=== PATIENT | female | born 1980 | race Caucasian/White ===

== ENCOUNTER 2016-10-07 12:20 | Emergency (ER) | payer SELFPAY ==
[~2016-10-07] VITALS: Ht 157.5 cm; Wt 88.8 kg
[2016-10-07] MEDS ORDERED: HYDROmorphone 2 MG/ML (DILAUDID) 1 ML SYRINGE IM ONE (13:25)
[2016-10-07] MEDS ORDERED: KETOROLAC 60 MG/2 ML (TORADOL) VIAL IM ONE (13:25)
[2016-10-07] MEDS ORDERED: PROMETHAZINE 25 MG/ML (PHENERGAN) 1 ML VIAL IM ONE (13:25)
[2016-10-07 13:42] LABS: BILIRUBIN,URINE Negative (Negative); CLARITY,URINE Cloudy; COLOR,URINE Yellow; GLUCOSE, URINE (UA) Negative (Negative); LEUKOCYTE ESTERASE ,URINE 2+ (Negative); PH,URINE 5.5 (5.0 - 8.0); UROBILINOGEN,URINE 0.2 mg/dL (0.2-1.0)
[2016-10-07 13:56] LABS: URINE CENTRIFUGED VOLUME 12 mL
[2016-10-07 13:57] LABS: RBC,URINE 20-50 /HPF
[2016-10-07 14:41] VITALS: BP 102/76
== END 2016-10-07 14:25 | disposition home or self-care (01) ==
LOC: ED 12:23
DX: N23 Unspecified renal colic (principal); N39.0 Urinary tract infection, site not specified
CPT/HCPCS: 81003; 81015; 87088; 96372; 99282; J1170; J1885; J2550; 87077; 87186; 99283

== ENCOUNTER → 2016-10-30 | Outpatient (CLI) | payer SELFPAY ==
[~2016-10-30] MED LIST: BACI3.5O6 OU; BUSP10TA95 PO; CLON1TAB3 PO; CPR500T PO; CYCL2DRO3 OU; FLUO20CA42 PO; HYDR-3702 PO; HYDR-3811 PO; LEVO1TAB20 PO; LVF500T PO; NF-TORA10 PO; ONDA4TAB8 PO; PARO40TA3 PO; PARO40TA47 PO; PRM25T PO; PROP20TA5 PO; QUET300T3 PO; TAMS0.4C2 PO; TRAM-25 PO; TRAZ100T92 PO; ZLP10T PO
[2016-10-30 12:46] LABS: MEAN CORPUSCULAR HEMOGLOBIN 28.1 PG (26.0-34.0); MEAN CORPUSCULAR HGB CONC 32.6 g/dL (31.0-37.0); MEAN CORPUSCULAR VOLUME 86 FL (80-100); MEAN PLATELET VOLUME 9.3 FL (6.0-9.5); PLATELET COUNT 378 10^3uL (150-450); WHITE BLOOD COUNT 7.83 10^3uL (4.0-11.0)
[2016-10-30 13:30] LABS: ANION GAP 14.3 MEQ/L (3-15)
[2016-10-30 13:57] LABS: BAND NEUTROPHILS % 0 % (0-6); EOSINOPHILS % 20 % (0-4); LYMPHOCYTES # 2.1 #; MONOCYTES # 0.2 #; MONOCYTES % 3 % (3-11); RBC MORPH NORMAL (NORMAL); SEGMENTED NEUTROPHILS % 50 % (51-67); TOTAL CELLS COUNTED 100
--- NOTE | 2016-10-30 14:04 | Diagnostic Imaging Report ---
EXAM: US RENAL BILATERAL INDICATION: History of renal stones. Flank pain. COMPARISON: CT abdomen and pelvis without contrast 03/20/2016. FINDINGS: Normal corticomedullary differentiation of the right kidney. No right renal mass or hydronephrosis. Right kidney measures 10.8 cm. The left kidney demonstrates cortical thinning and is smaller compared to the right measuring 6.5 cm. There is no left kidney mass or hydronephrosis. IMPRESSION: Stable asymmetric size of the kidneys with cortical thinning involving the lower pole of the left kidney. No hydronephrosis. Findings discussed with Dr. Stephan Oakley at 1:54 p.m. on 10/30/2016. Dictated by: Dictated on workstation # [id number]
== END ==
LOC: RAD 12:28
PROVIDERS: ATTEND Internal Medicine
DX: N30.20 Other chronic cystitis without hematuria (principal)
CPT/HCPCS: 36415; 76770; 80048; 85025; 86140

== ENCOUNTER → 2016-10-30 | Outpatient (REF) | payer SELFPAY | LOC: LAB 12:30 | PROVIDERS: ATTEND Internal Medicine | DX: N30.20 Other chronic cystitis without hematuria (principal) | CPT/HCPCS: 87088 ==

== ENCOUNTER 2016-11-25 08:55 | Emergency (ER) | payer SELFPAY ==
[~2016-11-25] VITALS: Ht 157.5 cm; Wt 91.9 kg
--- OUTSIDE RECORDS SUMMARY | 2016-11-25 08:59 | XMS REPORT | Continuity of Care Document ---
Author Author [facility] Organization [facility] Address Unknown Phone Unavailable Care Team Providers Care Solutions Operator Name Role Phone SHANKAR ROGERS MD PCP [phone] Insurance Providers Payer Name Policy Number Subscriber Name Relationship Self Pay Tiana Ballard 18 Self / Same As Patient Chief Complaint and Reason for Visit Chief Complaint Eye Complaint Reason for Visit [id number] Problems Medical Problems Problem Onset Date Status Flank pain 10/30/2012 Resolved Endoscopy of urinary bladder 12/21/2012 Resolved Pyelonephritis Unknown Resolved Laceration of leg, right ~12/25/2014 Active Contusion, forearm ~12/26/2014 Active Contusion, hand ~12/26/2014 Active Contusion of shoulder ~12/26/2014 Active Chemical insult, eye Unknown Active Medications Medication Dose Route Sig Days/Qty Instructions Order Date Discontinued Date Status Paroxetine Hcl 40 Mg ORAL daily 10/30/12 09/11/14 Discontinued Trazodone Hcl 150 Mg ORAL BEDTIME 10/30/12 09/11/14 Discontinued Tramadol Hcl 50-100 Mg ORAL EVERY 4HRS PRN PRN 10/30/12 Active Levofloxacin 500 Mg ORAL DAILY 11/04/12 09/11/14 Discontinued Ondansetron 4 Mg ORAL EVERY 6 HOURS PRN NAUSEA/VOMITING 11/04/12 Discontinued Zolpidem Tartrate 5 Mg ORAL BEDTIME PRN SLEEP 09/11/14 Active Buspirone HCl (Buspar) 10 Mg ORAL THREE TIMES A DAY 01/27/15 Active Clonazepam 1.5 Mg ORAL BEDTIME 09/11/14 Active Levonorgestrel-Eth Estradiol 1 Tab ORAL DAILY 09/11/14 Active Paroxetine Hcl 40 Mg ORAL DAILY 09/11/14 Active Hydrocodone Bit/Acetaminophen 1 Tab ORAL EVERY 6 HOURS PRN PRN 09/14/14 Discontinued Hydrocodone Bit/Acetaminophen 1-2 Tab ORAL EVERY 6 HOURS PRN PRN 30 Qty 09/14/14 12/25/14 Discontinued Ciprofloxacin 500 Mg ORAL TWICE A DAY 20 Qty 09/14/14 12/25/14 Discontinued Ondansetron 4 Mg ORAL EVERY 6 HOURS PRN NAUSEA 15 Qty 09/14/14 Discontinued Social History No social history. Hospital Discharge Instructions No hospital discharge instructions. Plan of Care Discharge Date 02/15/15 5:51pm Disposition 01 HOME OR SELF-CARE Condition at Discharge Stable Prescriptions See Medications Section Follow-up Orders Urine Culture Referrals SHANKAR ROGERS MD, ESTHER V MD Additional Instructions/Education Follow up with Dr Feldman. ED ERMIAS if any worse. Antibiotic ointment and cyclopentolate as directed. Some of your test results may not be complete prior to your leaving the Emergency Department. The Emergency Department is not authorized to give test results over the phone. Please contact the doctor's office listed in this packet of information for your final results. Follow up with your primary care physician or return to the Emergency Department for worsening or worrisome symptoms. * Emergency Department phone number: [phone], x [phone]* MEDICAL RECORD If you need copies of your X-rays, call [phone]. If you need copies of your medical record, including lab results, a signed authorization for release of records will be required. A telephone call for release of Health Information is not allowed. BILLING Billing can sometimes be confusing and frustrating. To help avoid confusion in the future, please take a moment to acquaint yourself with the billing parties for services. [employer] Emergency Room Services [facility] [place] [facility] Patients will receive bills for services from the appropriate provider. If you have any questions about your [facility] bill, our staff will be happy to assist you. Please call [phone], and ask for the billing department. THANK YOU for choosing [facility] as your emergency care provider! Functional Status No functional status results. Allergies, Adverse Reactions, Alerts Allergen Type Severity Reaction Status Last Updated oxycodone HCl Allergy hives Active 10/30/12 Immunizations No immunization records. Vital Signs Acute Vital Signs Vital Response Date/Time Height 5 ft 2 in Weight 172 lb Body Mass Index 31.0 kg/m^2 Results Test Source Date Result Interp. Ref. Range Comments Alanine Aminotransferase (ALT/SGPT) September 11, 2014 1:13pm 26 U/L L 30- 65 Collected by nurse? N Albumin September 12, 2014 7:00am 3.8 g/dL N 3.4-5.0 Collected by nurse? N Albumin/Globulin Ratio September 11, 2014 1:13pm 1.517 N 1.1-1.8 Collected by nurse? N Alkaline Phosphatase September 11, 2014 1:13pm 122 U/L N 38-126 Collected by nurse? N Anion Gap September 12, 2014 7:00am 14.7 MEQ/L N 3-15 Collected by nurse ? N Aspartate Amino Transf (AST/SGOT) September 11, 2014 1:13pm 18 U/L N 15- 37 Collected by nurse? N BUN/Creatinine Ratio September 11, 2014 1:13pm 12 N 10-20 Collected by nurse? N Band Neutrophils % September 12, 2014 7:00am 0 % N 0-6 Collected by nurse ? N Basophils # (Auto) September 12, 2014 7:00am Not Performed Basophils % November 04, 2012 1:20pm 0 % N 0-1 Collected by nurse? N Basophils % (Manual) September 12, 2014 7:00am 0 % N 0-2 Collected by nurse? N Basophils (%) (Auto) September 12, 2014 7:00am Not Performed 0-2 Blood Urea Nitrogen September 12, 2014 7:00am 9 mg/dL N 7-18 Collected by nurse? N C-Reactive Protein June 12, 2014 12:47pm < 0.50 MG/DL 0.0-0.9 SENT 24 HR CONTAINER & INSTRUCTIONS HOME WITH PT. Calcium Level September 12, 2014 7:00am 8.8 mg/dL N 8.8-10.8 Collected by nurse? N Calculated Osmolality September 11, 2014 1:13pm 269 mosm/L L 280-300 Collected by nurse? N Carbon Dioxide Level September 12, 2014 7:00am 27 mmol/L N 22-29 Collected by nurse? N Chloride Level September 12, 2014 7:00am 104 mmol/L N 98-108 Collected by nurse? N Clumped Platelets November 04, 2012 1:20pm 2+ Moderate amount of platelet is noted. Creatinine September 12, 2014 7:00am 1.02 mg/dL N 0.6-1.2 Collected by nurse? N D-Dimer November 04, 2012 4:40pm 5.91 ug/mL PH 0.20-0.[address] Gardner read back the results. Called by Magnolia Kulkarni at [id number] Differential Total Cells Counted September 12, 2014 7:00am 100 Collected by nurse? N Eosinophils # September 12, 2014 7:00am 0.4 # Collected by nurse? N Eosinophils # (Auto) September 12, 2014 7:00am Not Performed Eosinophils % November 04, 2012 1:20pm 2 % N 0-5 Collected by nurse? N Eosinophils % (Manual) September 12, 2014 7:00am 3 % N 0-4 Collected by nurse? N Eosinophils (%) (Auto) September 12, 2014 7:00am Not Performed 0-4 Erythrocyte Sedimentation Rate June 12, 2014 12:47pm 23 mm/hr H 0-21 Glucose Level September 12, 2014 7:00am 114 mg/dL H 70-110 Collected by nurse? N Hematocrit September 12, 2014 7:00am 37.60 % N 35.00-45.00 Collected by nurse? N Hemoglobin September 12, 2014 7:00am 12.2 g/dL N 12.0-15.5 Collected by nurse? N Lymphocytes # September 12, 2014 7:00am 1.6 # Collected by nurse? N Lymphocytes # (Auto) September 12, 2014 7:00am Not Performed Lymphocytes % November 04, 2012 1:20pm 17 % N 16-34 Collected by nurse? N Lymphocytes % (Manual) September 12, 2014 7:00am 13 % L 20-46 Collected by nurse? N Lymphocytes (%) (Auto) September 12, 2014 7:00am Not Performed 20-46 Magnesium Level September 12, 2014 7:00am 2.0 mg/dL N 1.6-2.3 Collected by nurse? N Mean Corpuscular Hemoglobin September 12, 2014 7:00am 29.6 PG N 26.0-34.0 Collected by nurse? N Mean Corpuscular Hemoglobin Concent September 12, 2014 7:00am 32.4 g/dL N 31.0-37.0 Collected by nurse? N Mean Corpuscular Volume September 12, 2014 7:00am 91 FL N 80-100 Collected by nurse? N Mean Platelet Volume September 12, 2014 7:00am 9.8 FL H 6.0-9.5 Collected by nurse? N Metamyelocytes % September 12, 2014 7:00am 0 % N 0-1 Collected by nurse? N Monocytes # September 12, 2014 7:00am 0.5 # Collected by nurse? N Monocytes # (Auto) September 12, 2014 7:00am Not Performed Monocytes % November 04, 2012 1:20pm 13 % H 0-10 Collected by nurse? N Monocytes % (Manual) September 12, 2014 7:00am 4 % N 3-11 Collected by nurse? N Monocytes (%) (Auto) September 12, 2014 7:00am Not Performed 3-11 Neutrophils # September 12, 2014 7:00am 9.8 # Collected by nurse? N Neutrophils # (Auto) September 12, 2014 7:00am Not Performed Neutrophils (%) (Auto) September 12, 2014 7:00am Not Performed 51-67 Phosphorus Level September 12, 2014 7:00am 2.7 MG/DL N 2.4-4.9 Collected by nurse? N Platelet Count September 12, 2014 7:00am 257 10^3uL N 150-450 Collected by nurse? N Potassium Level September 12, 2014 7:00am 4.1 mmol/L N 3.5-5.1 Collected by nurse? N Red Blood Count September 12, 2014 7:00am 4.12 10^6uL N 4.00-5.00 Collected by nurse? N Red Cell Distribution Width September 12, 2014 7:00am 14.8 % N 11.8-15.6 Collected by nurse? N Segmented Neutrophils % September 12, 2014 7:00am 80 % H 51-67 Collected by nurse? N Sodium Level September 12, 2014 7:00am 142 mmol/L N 135-150 Collected by nurse? N Thyroid Stimulating Hormone (TSH) June 12, 2014 12:47pm 0.85 UIU/ML N 0.46-4.68 SENT 24 HR CONTAINER & INSTRUCTIONS HOME WITH PT. Total Bilirubin September 11, 2014 1:13pm 0.6 mg/dL N 0.1-1.0 Collected by nurse? N Total Protein September 11, 2014 1:13pm 7.3 g/dL N 6.4-8.5 Collected by nurse? N Urine Amphetamines Screen October 30, 2012 1:05am Negative Negative Urine Bacteria November 04, 2012 12:55pm 2+ /HPF Collected by nurse? N Urine Barbiturates Screen October 30, 2012 1:05am Negative Negative Urine Benzodiazepines Screen October 30, 2012 1:05am Positive H Negative Urine Bilirubin November 04, 2012 12:55pm 1+ H Negative Indican, Lodine metabolite and atypical colors mayinterfere with the interpretation of the Bilirubin reaction. Further testing is required for confirmation. Urine Blood November 04, 2012 12:55pm Trace-intact H Negative Collected by nurse? N Urine Clarity November 04, 2012 12:55pm Slightly cloudy Collected by nurse? N Urine Cocaine Screen October 30, 2012 1:05am Negative Negative Urine Color November 04, 2012 12:55pm Kim Collected by nurse? N Urine Glucose (UA) November 04, 2012 12:55pm Negative Negative Collected by nurse? N Urine Ketones November 04, 2012 12:55pm Negative Negative Collected by nurse? N Urine Leukocyte Esterase November 04, 2012 12:55pm Negative Negative Collected by nurse? N Urine Metanephrine June 13, 2014 2:00pm 153 mcg/24 h () ---------REFERENCE VALUE 30-180 (Normotensive) <400 (Hypertensive) Urine Methamphetamines Screen October 30, 2012 1:05am Negative NEGATIVE Urine Mucus November 04, 2012 12:55pm 1+ Collected by nurse? N Urine Nitrite November 04, 2012 12:55pm Negative Negative Collected by nurse? N Urine Normetanephrine June 13, 2014 2:00pm 287 mcg/24 h () ------- REFERENCE VALUE 111-419 (Normotensive) <900 (Hypertensive) Urine Opiates Screen October 30, 2012 1:05am Positive H Negative Urine Phencyclidine Screen October 30, 2012 1:05am Negative Negative Phencyclidine testing by this method can showcross-reactivity with several common medications such as venlafaxine, dextromethorphan, and diphenhydramine. Submission of any positive sample for confirmatory testing is recommended. Urine Test November 04, 2012 12:55pm Negative Negative Collected by nurse? N Urine Propoxyphene Screen October 30, 2012 1:05am Negative NEGATIVE Results of this screen are qualitative and are presumptiveresults. A more specific method (i.e. GC/MS) must be used if confirmation of results is indicated. Urine Protein November 04, 2012 12:55pm 3+ H Negative Collected by nurse? N Urine RBC November 04, 2012 12:55pm 2-5 /HPF Collected by nurse? N Urine Specific [place] November 04, 2012 12:55pm 1.025 1.005-1.030 Collected by nurse? N Urine Squamous Epithelial Cells November 04, 2012 12:55pm 10-20 /LPF Collected by nurse? N Urine Total Metanephrines June 13, 2014 2:00pm 440 mcg/24 h () --- REFERENCE VALUE 149-535 (Normotensive) <1300 (Hypertensive) Urine Urobilinogen November 04, 2012 12:55pm 0.2 mg/dL 0.2-1.0 Collected by nurse? N Urine WBC November 04, 2012 12:55pm 5-10 /HPF H Collected by nurse? N Urine pH November 04, 2012 12:55pm 6.0 5.0 - 8.0 Collected by nurse? N White Blood Count September 12, 2014 7:00am 12.21 10^3uL H 4.0-11.0 Collected by nurse? N Serum Alcohol October 30, 2012 1:10am 149.0 MG/DL H 10-80 Estimat Glomerular Filtration Rate September 12, 2014 7:00am 76.0 Collected by nurse? N Urine Oxycodone Screen October 30, 2012 1:05am Negative NEGATIVE Blood Morphology Comment September 12, 2014 7:00am Normal NORMAL Collected by nurse? N Urine Cannabinoids Screen October 30, 2012 1:05am Negative Negative Estimated GFR (Non- September 12, 2014 7:00am 62.8 Collected by nurse? N Absolute Band Neutrophils September 12, 2014 7:00am 0.0 # Collected by nurse? N Urine Total Volume (Metanephrines) June 13, 2014 2:00pm 650 mL () Test Performed by:[facility] [place] [address] Engraving Supervisor: Darrian Fink M.D. --- 06/16/14 1410 --- METAUV previously reported as: 650 Calcium/Ionized Calcium Ratio September 11, 2014 1:13pm 4.1 mg/dL N 3.8- 4.6 Collected by nurse? N Blood Culture Peripheral-:Lab Indicates After Collectio September 11, 2014 1: 37pm No Growth in 5 days Urine Culture Urine-Clean Catch September 11, 2014 11:15am Procedures No known history of procedures. Encounters Encounter Location Date/Time Registered Emergency Room [facility] 02/15/15 4:05pm Recent Diagnosis
--- OUTSIDE RECORDS SUMMARY | 2016-11-25 09:01 | XMS REPORT | Continuity of Care Document ---
Author Author [facility] Organization [facility] Address Unknown Phone Unavailable Care Team Providers Care Casting Assistant Name Role Phone SHANKAR ROGERS MD PCP [phone] Insurance Providers Payer Name Policy Number Subscriber Name Relationship Self Pay Tiana Ballard 18 Self / Same As Patient Chief Complaint and Reason for Visit Chief Complaint Eye Complaint Reason for Visit [id number] Problems Medical Problems Problem Onset Date Status [...] worrisome symptoms. * Emergency Department phone number: [phone], x [phone]* MEDICAL RECORD If you need copies of your X-rays, call [phone] x [phone]. If you need copies of [...] the billing parties for services. [employer]ICE [employer]ILLING [employer] Emergency Room Services [facility] [place] [facility] Patients will receive bills for services from the appropriate provider. If you have any questions about your [facility] bill, our staff will be happy to assist you. Please call [phone], and ask for the billing department. THANK YOU for choosing [facility] as your emergency care provider! Functional Status [...] /HPF Collected by nurse? N Urine Specific [place] November 04, 2012 12:55pm 1.025 1.005-1.030 Collected [...] 2014 2:00pm 650 mL () Test Performed by:[facility] [place] [address] Transition Nurse: Darrian Fink M.D. --- 06/16/14 1410 --- [...] Encounters Encounter Location Date/Time Registered Emergency Room [facility] 02/15/15 4:05pm Recent Diagnosis
[2016-11-25] MEDS ORDERED: SODIUM CHLORIDE FLUSH 3 ML SYR IV ONE (09:05)
[2016-11-25] MEDS ORDERED: ONDANSETRON 2 MG/ML (Z0FRAN) 2 ML VIAL IV ONE (09:05)
[2016-11-25] MEDS ORDERED: KETOROLAC 30 MG/ML (TORADOL) 1 ML VIAL IV ONE (09:05)
[2016-11-25] MEDS ORDERED: SODIUM CHLORIDE FLUSH 10 ML SYR IV PRN (09:05)
[2016-11-25] MEDS ORDERED: IBUP-1096 PO (09:11)
--- NOTE | 2016-11-25 09:19 | NUR ---
PT STATES LAST TIME SHE WAS HERE SHE JUST GOT 2 SHOTS & SENT ON HER WAY THEN SHE FOLLOWED UP W/UROLOGIST WHO WANTED TO PLACE A STENT. PT DECLINED SHE HAS "HAD MANY STENTS IN THE PAST & NOT FOND OF THEM". THEN STATES SHE PASSED IT BUT THEY "ARE ALWAYS TOO SMALL TO CATCH SO WE DONT KNOW WHAT CAUSES THEM & HAVE HAD TO HAVE THEM GO AFTER THEM BEFORE". CL
--- NOTE | 2016-11-25 09:21 | NUR ---
PT STATES SHE HAS HAD 7-8 CT SCANS BEFORE. PT STATES SHE DOESN'T WANT THE CT OR IV BUT WILL COMPLY. CL
--- NOTE | 2016-11-25 09:43 | Diagnostic Imaging Report ---
PROCEDURE: CT abdomen and pelvis without contrast. TECHNIQUE: Multiple contiguous axial images were obtained through the abdomen and pelvis without the use of intravenous contrast. INDICATION: Left flank pain. FINDINGS: The lung bases are clear. The liver appears normal. The gallbladder is surgically absent. The pancreas is normal. The spleen is not enlarged. The adrenals appear normal. There is a 1 mm calculus in a lower pole calyx of the right kidney. There is severe scarring of the inferior pole of the left kidney with multifocal areas of cortical thinning. There is a 1 mm calculus in a ventral interpolar calyx of the left kidney. The aorta is unremarkable. The small bowel is not dilated. The appendix appears normal. The colon appears normal. The uterus is present. The adnexa are unremarkable. There is no retroperitoneal free air or free fluid. IMPRESSION: Bilateral nephrolithiasis with significant scarring in the left kidney. No acute abnormality is seen in the abdomen or pelvis. Dictated by: Dictated on workstation # [id number]
[2016-11-25 09:46] LABS: BASOPHILS % (AUTO) 0 % (0-2); EOSINOPHILS # (AUTO) 0.8 10^3uL; EOSINOPHILS % (AUTO) 5 % (0-4); LYMPHOCYTES # (AUTO) 1.9 X10^3; MEAN CORPUSCULAR HEMOGLOBIN 28.3 PG (26.0-34.0); MEAN CORPUSCULAR HGB CONC 32.3 g/dL (31.0-37.0); MEAN CORPUSCULAR VOLUME 88 FL (80-100); MEAN PLATELET VOLUME 9.6 FL (6.0-9.5); MONOCYTES # (AUTO) 0.7 X10^3; MONOCYTES % (AUTO) 4 % (3-11); NEUTROPHILS % (AUTO) 78 % (51-67); PLATELET COUNT 350 10^3uL (150-450); WHITE BLOOD COUNT 15.39 10^3uL (4.0-11.0)
[2016-11-25 09:49] LABS: BILIRUBIN,URINE Negative (Negative); CLARITY,URINE Cloudy; COLOR,URINE Yellow; GLUCOSE, URINE (UA) Negative (Negative); LEUKOCYTE ESTERASE ,URINE 1+ (Negative); PH,URINE 5.5 (5.0 - 8.0); UROBILINOGEN,URINE 0.2 mg/dL (0.2-1.0)
[2016-11-25 09:55] LABS: ALBUMIN 3.9 g/dL (3.4-5.0); ANION GAP 15.1 MEQ/L (3-15); TOTAL PROTEIN 7.1 g/dL (6.4-8.5)
[2016-11-25 10:03] LABS: URINE CENTRIFUGED VOLUME 10 mL
[2016-11-25] MEDS ORDERED: HYDR-3702 PO (10:15)
[2016-11-25] MEDS ORDERED: CPR500T PO (10:34)
[2016-11-25 11:29] VITALS: BP 101/54
== END 2016-11-25 10:27 | disposition home or self-care (01) ==
LOC: ED 08:56
DX: N10 Acute pyelonephritis (principal)
CPT/HCPCS: 36415; 74176; 80053; 81003; 81015; 83690; 85025; 86140; 87088; 96361; 96374; 96375; 99284; J1885; J2405; J7030; 87147; 99283